=== PATIENT | female | born 1950 | race Caucasian/White ===

== ENCOUNTER → 2024-09-18 | Outpatient (CLI) | payer MEDICARE | LOC: M WHC 12:12 | PROVIDERS: ATTEND Nurse Practitioner Family | DX: I65.21 Occlusion and stenosis of right carotid artery (principal) ==

== ENCOUNTER → 2024-12-25 | Outpatient (CLI) | payer MEDICARE, BC ==
[~2024-12-25] MED LIST: ANAS1TAB2; ANAS1TAB2 PO; BIOT1CAP2 PO; CALC500C16 PO; CLOP75TA2; DRAM1CHW PO; ECOT81TA5 PO; ESOM40CA35; ISOVUE-370 76% 100ML VIAL As Ordered ONE; KP F1200 PO; METO1TAB7; RAMI5CAP60; ROSU40TA81; TRAN1DIS4 TOP; VITAD400CA FT
== END ==
LOC: M RAD 10:09
PROVIDERS: ATTEND Surgery Vascular Surgery
DX: I65.23 Occlusion and stenosis of bilateral carotid arteries (principal)
CPT/HCPCS: 70496; 70498; Q9967

== ENCOUNTER → 2025-07-30 | Outpatient (CLI) | payer MEDICARE, BC ==
[~2025-07-30] MED LIST changes: +EZET10TA57; +ISOS1TAB35; -ISOVUE-370 76% 100ML VIAL As Ordered ONE; +MAGNESIUM
== END ==
LOC: M RAD 10:59
PROVIDERS: ATTEND Surgery Vascular Surgery
DX: I65.23 Occlusion and stenosis of bilateral carotid arteries (principal)